=== PATIENT | male | born 1960 | race American Indian/Alaskan Native ===

== ENCOUNTER 2016-07-23 18:00 | Inpatient (IN) | payer MEDICARE, OTHER ==
[2016-07-23 21:43] LABS: BASO # 0.1 K/uL (0.0-0.2); EOS # 0.2 K/uL (0.0-0.7); EOS % 2.1 % (0.0-4.0); HEMATOCRIT 46.2 % (35.0-51.0); LYMPH # 2.2 K/uL (1.0-4.3); LYMPH % 26.6 % (20.0-40.0); MEAN CELL VOLUME 85.9 fL (80.0-94.0); MEAN CORPUSCULAR HEMOGLOBIN 27.7 pg (27.0-31.0); MEAN CORPUSCULAR HGB CONC 32.2 g/dL (33.0-37.0); MEAN PLATELET VOLUME 7.8 fL (7.2-11.7); MONO # 0.6 K/uL (0.0-0.8); MONO % 7.9 % (0.0-10.0); RED CELL DISTRIBUTION WIDTH 14.6 % (11.5-14.5); WHITE BLOOD COUNT 8.2 K/uL (4.8-10.8)
[2016-07-23 21:50] LABS: CHLORIDE 95 mmol/L (98-107); RBC URINE 1 /hpf (0-3); URINE BILIRUBIN NEGATIVE (NEGATIVE); URINE BLOOD NEGATIVE (NEGATIVE); URINE COLOR Yellow (YELLOW); URINE GLUCOSE (UA) NORMAL (Normal); URINE KETONE NEGATIVE (NEGATIVE); URINE LEUKOCYTE ESTERASE NEG Leu/uL (Negative); URINE PROTEIN NEGATIVE (NEGATIVE); URINE UROBILINOGEN NORMAL mg/dL (0.2-1.0); WBC URINE 1 /hpf (0-5)
[2016-07-23 21:51] LABS: POTASSIUM 4.4 mmol/L (3.6-5.2); SODIUM 136 mmol/L (132-148)
[2016-07-23 21:53] LABS: ALB/GLOB RATIO 1.5 (1.0-2.1); ALKALINE PHOSPHATASE 59 U/L (38-126); ALT/SGPT 25 U/L (21-72); AST/SGOT 23 U/L (17-59); BILIRUBIN,TOTAL 0.4 mg/dL (0.2-1.3); BLOOD UREA NITROGEN 19 mg/dL (9-20); CALCIUM 8.8 mg/dl (8.6-10.4); CARBON DIOXIDE 28 mmol/L (22-30); GFR AFRICAN-AMERICAN > 60; GLUCOSE,RANDOM 87 mg/dL (75-110); TOTAL PROTEIN 7.5 g/dL (6.3-8.3)
[2016-07-23 21:54] LABS: ALCOHOL SERUM < 10 mg/dl (0-10)
--- NOTE | 2016-07-23 22:29 | C.PDOC ---
History Of Present Illness Pt is here requesting detox from Heroin. Time Seen by Provider: 07/23/16 19:53 Chief Complaint (Nursing): Substance Abuse History Per: Patient Onset/Duration Of Symptoms: Days Current Symptoms Are (Timing): Still Present Suicide/Self Injury Attempted (Context): None Modifying Factor(s): Narcotics Severity: Moderate Associated Symptoms: denies: Suicidal Thoughts, Suicidal Plan Additional History Per: Prior Records Past Medical History Reviewed: Historical Data, Nursing Documentation, Vital Signs Vital Signs: Last Vital Signs Temp 97.7 F 07/23/16 19:40 Pulse 97 H 07/23/16 19:40 Resp 20 07/23/16 19:40 BP 150/89 07/23/16 19:40 Pulse Ox 95 07/23/16 22:29 - Medical History PMH: Asthma Family History: States: Unknown Family Hx - Social History Hx Alcohol Use: Yes Hx Substance Use: Yes (Snorts Heroin) Review Of Systems Except As Marked, All Systems Reviewed And Found Negative. Constitutional: Negative for: Fever, Weakness Cardiovascular: Negative for: Chest Pain Respiratory: Negative for: Shortness of Breath Gastrointestinal: Negative for: Vomiting, Abdominal Pain Musculoskeletal: Negative for: Neck Pain Skin: Negative for: Rash Neurological: Negative for: Weakness, Numbness, Seizures, Altered Mental Status Psych: Negative for: Psychosis Physical Exam - Physical Exam Appears: Non-toxic, No Acute Distress Skin: Normal Color, Warm, Dry, No Rash Head: Atraumatic, Normacephalic Eye(s): bilateral: PERRL, EOMI Neck: Normal ROM, Supple Cardiovascular: Rhythm Regular Respiratory: Normal Breath Sounds, No Accessory Muscle Use Gastrointestinal/Abdominal: Soft, No Tenderness Back: No CVA Tenderness Extremity: Normal ROM Neurological/Psych: Oriented x3, Normal Motor, Normal Sensation ED Course And Treatment - Laboratory Results Result Diagrams: 07/23/16 21:37 07/23/16 21:37 Lab Interpretation: No Acute Changes O2 Sat by Pulse Oximetry: 95 Pulse Ox Interpretation: Normal Progress Note: Pt is medically stable for detox admission. Disposition Counseled Patient/Family Regarding: Studies Performed, Diagnosis - Disposition Disposition: HOSPITALIZED Disposition Time: 23:00 Condition: STABLE - Clinical Impression Clinical Impression: Opiate dependence Decision To Admit - Pt Status Changed To: Hospital Disposition Of: Inpatient - Admit Certification Admit to Inpatient:: After my assessment, the patient will require hospitalization for at least two midnights. This is because of the severity of symptoms shown, intensity of services needed, and/or the medical risk in this patient being treated as an outpatient. - InPatient: Physician Admission Certification: I certify that this patient requires 2 or more midnights of care for the following reason:: Detox. - . Bed Request Type: Detox Admitting Physician: Luther Ramírez Patient Diagnosis: Opiate dependence
[2016-07-24] MEDS ORDERED: Aluminum Hydroxide/Magnesium Hydroxide Susp (30 mL) PO PRN (00:11)
[2016-07-24] MEDS ORDERED: Buprenorphine Hydrochloride 2 mg SL ONE ×2 (08:40→09:40)
[2016-07-24] MEDS: Pantoprazole 40 mg EC Tab PO SCH (09:03)
--- NOTE | 2016-07-24 13:42 | PCM.PSYCH ---
Initial Psychiatric Evaluation - Initial Psychiatric Evaluation Type of Admission: Voluntary Legal Status: Capacity Chief Complaint (in patient's own words): "Heroin" History of Present Illness and Precipitating Events: The patient is seen, chart reviewed and case discussed. This is a 55-year-old -Chinese male, single with 2 adult children, disabled because of her back surgery, living alone in [place]. He admits to using 6 bags of heroin intranasally for the past 20+ years. Longest sobriety was 3 years and he had been to a methadone program in [place] ( [facility]) and his dose was 90 mg, quit 2 years ago. He denies other drug use or painkiller use. He smokes 10 cigarettes per day and sometimes takes Xanax. In the past he had used cocaine. Past psych history: Denies Family psych history: Denies Medical history: Disc hernia Current Medications: Active Medications Generic Name Dose Route Start Last Admin Trade Name Freq PRN Reason Stop Dose Admin Al Hydrox/Mg Hydrox/Simethicone 30 ml 07/24/16 00:11 Maalox 30 Ml PO TID PRN Indigestion / Heartburn Clonidine HCl 0.1 mg 07/24/16 00:11 07/24/16 08:34 Catapres PO 0.1 mg Q8 PRN Administration COWS Score More or Equal to 5 Hydroxyzine HCl 25 mg 07/24/16 00:11 07/24/16 13:38 Atarax PO 25 mg Q4H PRN Administration Anxiety Loperamide HCl 2 mg 07/24/16 00:11 Imodium PO Q8 PRN Diarrhea Montelukast Sodium 10 mg 07/24/16 10:00 07/24/16 09:03 Singulair PO 10 mg DAILY ABBEY Administration Ondansetron HCl 4 mg 07/24/16 00:11 Zofran Tab PO Q8 PRN Nausea/Vomiting Pantoprazole Sodium 40 mg 07/24/16 10:00 07/24/16 09:03 Protonix Ec Tab PO 40 mg DAILY ABBEY Administration Quetiapine Fumarate 100 mg 07/24/16 22:00 Seroquel PO HS ABBEY Trazodone HCl 100 mg 07/24/16 00:11 07/24/16 01:41 Desyrel PO 100 mg PRN PRN Administration Insomnia Past Psychiatric History - Past Psychiatric History Previous Treatment History: None Pertinent Medical Hx (Current Medical&Sleep Prob, Allergies): Allergies Allergy/AdvReac Type Severity Reaction Status Date / Time No Known Allergies Allergy Unverified 07/23/16 19:36 Celecoxib [CeleBREX] 200 mg PO 07/23/16 Dutasteride 0.5 mg PO 07/23/16 Finasteride [Proscar] 5 mg PO 07/23/16 Levocetirizine Dihydrochloride [Levocetirizine Dihydrochloride] 5 mg PO Montelukast [Singulair] 10 mg PO DAILY 07/23/16 Omeprazole 20 mg PO DAILY 07/23/16 Pantoprazole Sodium [Protonix] 40 mg PO DAILY 07/23/16 QUEtiapine [SEROquel] 100 mg PO HS 07/23/16 Review of Systems - Neurological Neurological: UNREMARKABLE - Psychiatric Psychiatric: Abnormal Sleep Pattern, Anxiety, Difficulty Concentrating. absent : Hallucinations, Homicidal Ideation, Paranoia, Suicidal Ideation Mental Status Examination - Personal Presentation Personal Presentation: Looks stated age - Affect Affect: Constricted - Motor Activity Motor Activity: Calm - Reliability in Providing Information Reliability in Providing Information: Good - Speech Speech: Organized - Mood Mood: Anxious - Formal Thought Process Formal Thought Process: No Impairment - Cognitive Functions Orientation: Person, Place, Situation, Time Attention/Concentration: Attentive Estimate of Intelligence: Average Judgement: Intact, as evidence by: Insight regarding need for hospitalization Memory: Recent intact, as evidence by: Ability to recall events of the day, Remote intact, as evidenced by: Abilit to recall sig. life events - Risk Risk: Diminished functioning - Strength & Assets Inventory Strength & Assets Inventory: Cooperative - Limitations Limitations: Living alone DSM 5 DX - DSM 5 DSM 5 Diagnosis: opioid withdrawal Opioid use disorder, severe - Recommended/Plan of Treatment Treatment Recommendations and Plan of Treatment: Subutex detox As needed medications Support and psychoeducation Attend groups and activities [place] and CBT for abstinence Refer to [facility] per his request 33 min Projected ELOS: 4 days Prognosis: good with treatment Discharge Plan and Discharge Criteria: no withdrawals Refer to IOP and MAT - Smoking Cessation Smoking Cessation Initiated: Yes
[2016-07-25 08:29] VITALS: RESP 18
[2016-07-25] MEDS: Pantoprazole 40 mg EC Tab PO SCH (09:04)
[2016-07-25] MEDS: Buprenorphine Hydrochloride 2 mg SL SCH (09:04)
--- NOTE | 2016-07-25 22:15 | PCM.PYCHPN ---
Psychiatric Progress Note - Psychiatric Progress Note Patient seen today, length of contact: 15 min Patient Chief Complaint: "Not well" Problems Identified/Issues Discussed: The pt is seen, chart reviewed, case discussed with staff. The pt is compliant with medications and reports no side-effects. Symptoms of withdrawal are improving but needs more time to stabilize. He doesn; t feel well. After care discussed, support and psychoeducation given. Medication Change: Yes (detox changes daily) Medical Record Reviewed: Yes Mental Status Examination - Cognitive Function Orientation: Person, Place, Situation, Time Memory: Intact Attention: WNL Concentration: WNL Association: WNL Fund of Knowledge: WNL - Mood Mood: Anxious - Affect Affect: Constricted - Speech Speech: Appropriate - Formal Thought Process Formal Thought Process: No Impairment - Suicidal Ideation Suicidal Ideation: No - Homicidal Ideation Homicidal Ideation: No Goal/Treatment Plan - Goal/Treatment Plan Need for Continued Stay: Discharge may exacerbated symptoms, Severe functional impairment Progress Toward Problem(s) and Goals/Treatment Plan: Subutex detox As needed medications Support and psychoeducation Attend groups and activities [place] and CBT for abstinence Refer to [facility] at [facility] or [facility]
[2016-07-26] MEDS: Buprenorphine Hydrochloride 2 mg SL SCH (09:35)
[2016-07-26] MEDS: Pantoprazole 40 mg EC Tab PO SCH (09:35)
[2016-07-26] MEDS: Multiple Vitamins Tab PO SCH (11:12)
--- NOTE | 2016-07-26 12:35 | PCM.PYCHPN ---
Psychiatric Progress Note - Psychiatric Progress Note Patient seen today, length of contact: 16 min Patient Chief Complaint: "A little better" Problems Identified/Issues Discussed: The pt is seen, chart reviewed, case discussed with staff. The pt is compliant with medications and reports no side-effects. Symptoms of withdrawal are improving but needs more time to stabilize. KS and CBt used. After care discussed, support and psychoeducation given. Medication Change: Yes (detox changes daily) Medical Record Reviewed: Yes Mental Status Examination - Cognitive Function Orientation: Person, Place, Situation, Time Memory: Intact Attention: WNL Concentration: WNL Association: WNL Fund of Knowledge: WNL - Mood Mood: Anxious - Affect Affect: Constricted - Speech Speech: Appropriate - Formal Thought Process Formal Thought Process: No Impairment - Suicidal Ideation Suicidal Ideation: No - Homicidal Ideation Homicidal Ideation: No Goal/Treatment Plan - Goal/Treatment Plan Need for Continued Stay: Discharge may exacerbated symptoms, Severe functional impairment Progress Toward Problem(s) and Goals/Treatment Plan: Subutex detox ending tomorrow. As needed medications Support and psychoeducation Attend groups and activities [place] and CBT for abstinence Refer to IOp at [facility] Estimated Date of D/C: 07/27/16 - Smoking Cessation Smoking Cessation Initiated: Yes
--- NOTE | 2016-07-27 08:46 | PCM.PYCHDC ---
Mental Status Examination - Mental Status Examination Orientation: Person Discharge Summary - Discharge Note Reason for Hospitalization: Heroin detox Psychiatric History (includes Medical, Family, Personal Hx): none Consultations:: List each consultation separately and include: 1. Reason for request. 2. Findings. 3. Follow-up Summary of Hospital Course include:: 1. Description of specific treatment plan utilized for patients during their course of treatmen. 2. Summarize the time- course for resolution of acute symptoms and/or regressed behaviors. 3. Describe issues identified and worked on during hospitalization. 4. Describe medication utilized. 5. Describe medical problems identified and treated. 6. Reassessment of suicide risk Summary of Hospital Course: The patient is seen, chart reviewed and case discussed. On admission: This is a 55-year-old -Malaysian male, single with 2 adult children, disabled because of her back surgery, living alone in [place]. He admits to using 6 bags of heroin intranasally for the past 20+ years. Longest sobriety was 3 years and he had been to a methadone program in [place] ( [facility]) and his dose was 90 mg, quit 2 years ago. He denies other drug use or painkiller use. He smokes 10 cigarettes per day and sometimes takes Xanax. In the past he had used cocaine. Past psych history: Denies Family psych history: Denies Medical history: Disc hernia Hospital course: The pt was admitted and started on treatment with psychotherapy, support, psychoeducation and medications. [place] and CBT used. The pt attended groups and activities, as well as milieu therapy. All the risks and benefits of medications are discussed and the patient understood and agreed. After care discussed with the patient. He decided to go to [facility] but his back up is [facility]. He was pleasant and cooperative - Final Diagnosis (DSM 5) Condition upon Discharge: STABLE DSM 5: Opioid withdrawal Opioid use d/o - severe Disposition: HOME/ ROUTINE Follow-up Treatment Plan: Continue below medications after discharge. Follow after care plan as discussed at [facility] or [facility] Use relapse prevention skills Return to ER or call 911 if suicidal, homicidal or symptoms relapse. Stay away from stress, alcohol and drugs. Prescriptions/Medication Reconciliation: traZODone [Desyrel] 100 mg PO PRN PRN #30 tab PRN Reason: Insomnia Pantoprazole [Protonix EC Tab] 40 mg PO DAILY #30 ect QUEtiapine [Seroquel] 100 mg PO HS #30 tab Montelukast [Singulair] 10 mg PO DAILY #30 tab - Smoking Cessation Smoking Cessation Medication prescribed: No - Antipsychotic Medications Pt discharged on 2 or more routine antipsychotic medications: No
[2016-07-27] MEDS: Buprenorphine Hydrochloride 2 mg SL SCH (09:07)
[2016-07-27] MEDS: Pantoprazole 40 mg EC Tab PO SCH (09:07)
[2016-07-27] MEDS: Multiple Vitamins Tab PO SCH (09:07)
[2016-07-27 09:37] VITALS: BP 118/82; PULSE 95; TEMP 97.8; O2SAT 97
== END 2016-07-27 10:00 | disposition home or self-care (01) | DRG 897 ==
LOC: C.ER 18:00 → C.7D 23:38
PROVIDERS: ADMIT Psychiatry & Neurology Psychiatry; ATTEND Psychiatry & Neurology Psychiatry
DX: F11.23 Opioid dependence with withdrawal (principal); F17.210 Nicotine dependence, cigarettes, uncomplicated